=== PATIENT | male | born 1945 | race Caucasian/White ===

== ENCOUNTER → 2022-12-20 | Outpatient (CLI) | payer MEDICARE ==
--- NOTE | 2022-12-20 13:05 | CT ---
EXAMINATION TYPE: CT abdomen pelvis wo con CT DLP: 680.2 mGycm, Automated exposure control for dose reduction was used. DATE OF EXAM: 12/20/2022 12:37 PM COMPARISON: Ultrasound 10/02/2022 CLINICAL INDICATION:Male, 77 years old with history of N13.30; Urine retention and enlarged prostate. TECHNIQUE: Axial CT of the abdomen and pelvis. Sagittal and coronal reformats were created on a [employer] workstation. Contrast used: None Oral contrast used: without Oral Contrast FINDINGS: LOWER CHEST: Unremarkable ABDOMEN LIVER: Unremarkable GALLBLADDER AND BILE DUCTS: Unremarkable. PANCREAS: Unremarkable. SPLEEN: Unremarkable. ADRENAL GLANDS: Unremarkable. KIDNEYS AND URETERS: No evidence of hydronephrosis or renal calculus. The ureters are unremarkable. PELVIS BLADDER: Dilated urinary bladder with wall trabeculations measuring 15.1 x 11.0 x 10.5 cm. Left later al bladder wall diverticula measuring 19 mm. REPRODUCTIVE: Prostate is enlarged in size measuring 6.4 cm in transverse dimension. ABDOMEN & PELVIS STOMACH AND BOWEL: No evidence of bowel obstruction. Scattered colonic diverticula. The colon does ex tend into a left inguinal hernia, no evidence of obstruction. PERITONEUM/RETROPERITONEUM: No evidence of pneumoperitoneum or free fluid. VASCULATURE: Mild atherosclerotic calcifications are present throughout the abdominal aorta and its b ranches. No evidence of aortic aneurysm. MUSCULOSKELETAL: No acute osseous abnormalities, grade 1 anterolisthesis of L5 on S1. Multilevel disc degeneration changes throughout the spine. LYMPH NODES: No gross evidence for lymphadenopathy. SOFT TISSUE/ABDOMINAL WALL: Left fat-containing inguinal hernia containing loops of colon. IMPRESSION: 1. Prostatomegaly, correlate with serum PSA. 2. Dilation of the urinary bladder with bladder wall trabeculation compatible with chronic bladder o bstruction likely secondary to #1. There is a bladder diverticula present. 3. Left inguinal hernia containing loop of colon with multiple diverticula. No evidence of obstructi on.
== END | disposition home or self-care (01) ==
LOC: RADCTMAIN 12:09
PROVIDERS: ATTEND Urology
DX: N40.1 Benign prostatic hyperplasia with lower urinary tract symptoms (principal); N32.89 Other specified disorders of bladder; K40.90 Unilateral inguinal hernia, without obstruction or gangrene, not specified as recurrent; K57.30 Diverticulosis of large intestine without perforation or abscess without bleeding; N13.30 Unspecified hydronephrosis; N32.3 Diverticulum of bladder
CPT/HCPCS: 74176

== ENCOUNTER 2023-01-25 06:17 | Day surgery (SDC) | payer MEDICARE ==
[2023-01-22 13:18] VITALS: BMI 25.7
[~2023-01-25 06:17] MED LIST: ACETAMINOPHEN TAB 500 MG TAB PO PRN; DEXAMETHASONE SOD PHOSPHATE 4 MG/ML 1 ML VIAL IV ONE; HEPARIN SODIUM,PORCINE/PF 5,000 UNIT/0.5 ML SYRINGE SQ PRN; LACTATED RINGERS 1,000 ML IV SCH; LIDOCAINE 1% (10MG/ML) FOR IV START INTRADERMA PRN; MIDAZOLAM 2 MG/2 ML VIAL IV PRN; ONDANSETRON 4 MG/2 ML VIAL IVP ONE
[2023-01-25] MEDS ORDERED: LACTATED RINGERS 1,000 ML IV ONE (06:59)
[2023-01-25] MEDS ORDERED: HYDROmorphone 0.5 MG/0.5 ML SYRINGE IVP PRN (07:00)
[2023-01-25 07:06] VITALS: RESP 16
--- NOTE | 2023-01-25 07:46 | P.GSHP ---
History of Present Illness H&P Date: 01/25/23 Chief Complaint: Left inguinal hernia This is a 77-year-old male who's developed a large left inguinal hernia. Patient has sigmoid colon within his inguinal hernia. Patient presents today for open repair. Past Medical History Past Medical History: Hearing Disorder / Deafness, Hyperlipidemia, Hypertension, Myocardial Infarction (SC), Prostate Disorder Additional Past Medical History / Comment(s): Enlarged prostate. Slightly hard of hearing in right ear. Last Myocardial Infarction Date:: 2001 History of Any Multi-Drug Resistant Organisms: None Reported Past Surgical History: Heart Catheterization With Stent Additional Past Surgical History / Comment(s): Cardiac stents X2 in 2001, X1 in 2002. Past Anesthesia/Blood Transfusion Reactions: No Reported Reaction Date of Last Stent Placement:: 2002 Past Psychological History: No Psychological Hx Reported Smoking Status: Never smoker Past Alcohol Use History: Daily Additional Past Alcohol Use History / Comment(s): Quit smoking in 2001. Drinks 2 beers daily, on average. Past Drug Use History: None Reported - Past Family History Father Family Medical History: No Reported History Medications and Allergies Home Medications Medication Instructions Recorded Confirmed Type Aspirin [Adult Low Dose Aspirin EC] 81 mg PO DAILY 01/22/23 01/25/23 History Clopidogrel [Plavix] 75 mg PO DAILY 01/22/23 01/25/23 History Dutasteride 0.5 mg PO DAILY 01/22/23 01/25/23 History Isosorbide Mononitrate [Isosorbide 30 mg PO DAILY 01/22/23 01/25/23 History Mononitrate ER] Multivitamins, Thera [Multivitamin 1 tab PO DAILY 01/22/23 01/25/23 History (formulary)] Quinapril HCl [Accupril] 10 mg PO DAILY 01/22/23 01/25/23 History Simvastatin 40 mg PO HS 01/22/23 01/25/23 History Tamsulosin HCl [Flomax] 0.4 mg PO BID 01/22/23 01/25/23 History atenoloL [Tenormin] 50 mg PO DAILY 01/22/23 01/25/23 History Allergies Allergy/AdvReac Type Severity Reaction Status Date / Time No Known Allergies Allergy Verified 01/25/23 06:57 Surgical - Exam Vital Signs Temp Pulse Resp BP Pulse Ox 98 F 50 L 16 198/90 99 01/25/23 07:00 01/25/23 07:00 01/25/23 07:00 01/25/23 07:00 01/25/23 07:00 - General well developed, well nourished, no distress - Eyes PERRL - ENT normal pinna - Neck no masses - Respiratory normal expansion - Cardiovascular Rhythm: regular - Abdomen Abdomen: soft, non tender Hernia: inguinal (Left inguinal hernia) Assessment and Plan Assessment: Left inguinal hernia. We'll perform open repair.
[2023-01-25] MEDS ORDERED: ROPIVACAINE 5 MG/ML 30 ML VIAL ONE (08:00)
[2023-01-25] MEDS ORDERED: SODIUM CHLORIDE 0.9% (PF) 10 ML VIAL ONE (08:00)
[2023-01-25] MEDS ORDERED: fentaNYL (PF) 50 MCG/ML 2 ML AMP ONE (08:00)
[2023-01-25] MEDS ORDERED: PROPOFOL 10 MG/ML 20 ML VIAL IV ONE (08:00)
[2023-01-25] MEDS ORDERED: BUPIVACAINE (PF) 0.25% 30 ML VIAL SQ ONE ×2 (08:28→08:48)
--- NOTE | 2023-01-25 08:59 | P.OP ---
Date of Procedure: 01/25/23 Preoperative Diagnosis: Large left inguinal hernia Postoperative Diagnosis: Large left inguinal hernia Procedure(s) Performed: (Pair of large left incarcerated inguinal hernia Anesthesia: RUFUS Surgeon: Maycol York Estimated Blood Loss (ml): 5 Pathology: none sent Condition: stable Disposition: PACU Description of Procedure: DESCRIPTION OF PROCEDURE: The patient was placed in the supine position after receiving adequate anesthesia. Patients groin was prepped and draped in the usual sterile fashion. A standard hernia incision was made and the subcutaneous tissues were divided with electrocautery. The fascia of the external oblique was exposed. A paradise the fascia was made with #15 blade. The fascia was then opened with pair of Metzenbaum scissors. A Weitlaner retractor was placed in the wound and the cord structures were grasped and dissected free from the inguinal canal. A rubber Wilson drain was placed around the cord structures. The hernia was large. The The hernial sac was seen on the anterior-medial portion of the cord and this was dissected free from the cord. The hernia sac was dissected free from the cord structures. Hernia sac contained incarcerated sigmoid colon. The hernia sac was then invaginated to the peritoneal cavity. Using blunt finger dissection, the preperitoneal space was dissected and then the Prolene hernial mesh plug was placed into the prepared space. The inferior leaf was expanded. The superior leaf was secured to the pubic tubercle using 2-0 Prolene suture. The lateral portion of the superior leaf was incised and cords tied and secured to the transversalis fascia using 2-0 Prolene suture. Fascia of the external oblique was then closed using #0 Vicryl suture. The [place] drain was removed. The Scarpas fascia was then closed with 3-0 Vicryl suture and skin was closed with willow. The patient tolerated the procedure well.
[2023-01-25 09:07] VITALS: TEMP 97
[2023-01-25] MEDS ORDERED: ONDANSETRON 4 MG/2 ML VIAL IVP ONE (09:15)
[2023-01-25] MEDS ORDERED: SODIUM CHLORIDE 0.9% 1,000 ML IV ONE ×3 (09:27→11:30)
--- NOTE | 2023-01-25 10:02 | P.ANPRN ---
Procedure Note - Anesthesia - Nerve Block Performed Left Transversus Abdominis Single Date of Procedure: 01/25/23 Procedure Start Time: 07:49 Procedure Stop Time: 07:55 Location of Patient: PreOp Indication: Acute Post-Operative Pain, Requested by Surgeon Sedation Type: Sedate with meaningful contact maintained Preparation: Sterile Prep Position: Supine Needle Types: Pajunk Needle Gauge: 21 Ultrasound used to visualize needle placement: Yes Ultrasound used to observe medication spread: Yes Injectate: 0.5% Ropivacaine (see comment for volume) (20) Blood Aspirated: No Pain Paresthesia on Injection Noted: No Resistance on Injection: Normal Image Stored and Saved: Yes Events: Uneventful and Well Tolerated
[2023-01-25 12:41] VITALS: BP 178/82; PULSE 47
== END 2023-01-25 13:05 | disposition home or self-care (01) ==
LOC: OR 06:17
PROVIDERS: ATTEND Surgery
DX: K40.30 Unilateral inguinal hernia, with obstruction, without gangrene, not specified as recurrent (principal); G89.18 Other acute postprocedural pain; I10 Essential (primary) hypertension; E78.5 Hyperlipidemia, unspecified; I25.2 Old myocardial infarction; N40.0 Benign prostatic hyperplasia without lower urinary tract symptoms; Z95.5 Presence of coronary angioplasty implant and graft; Z79.82 Long term (current) use of aspirin; Z79.02 Long term (current) use of antithrombotics/antiplatelets; Z79.899 Other long term (current) drug therapy
CPT/HCPCS: 49507; 64486; 88304; C1781; J2250; J1100; J0690; J2405; J3010; J2795; J2704; J1644; 64488

== ENCOUNTER → 2025-03-05 | Outpatient (CLI) | payer MEDICARE ==
--- NOTE | 2025-03-05 13:51 | US ---
EXAMINATION TYPE: US kidneys/renal and bladder DATE OF EXAM: 03/05/2025 COMPARISON: CT & US CLINICAL INDICATION: Male, 80 years old with history of N13.30 UNSPECIFIED HYDRONEPHROSIS; [place] TECHNIQUE: Grayscale imaging of the bilateral kidneys and urinary bladder: FINDINGS: EXAM MEASUREMENTS: Right Kidney: 11.2 x 5.7 x 6.3 cm Left Kidney: 11.7 x 6.6 x 5.5 cm Right Kidney: No hydronephrosis or masses seen Left Kidney: Moderate hydro, hypoechoic lesion mid= 1.1 x 0.7 x 1.1 cm Bladder: Over distended as visualized on prior US and CT, multiple bladder wall diverticula- pt state s bladder does not feel full Bilateral Jets seen: No Incidental enlarged prostate as visualized on prior CT IMPRESSION: 1. Moderate left hydronephrosis. Correlate for obstructive uropathy. 2. Prostatomegaly, comparison PSA. 3. Trabeculated urinary bladder mendez correlate for chronic bladder obstruction. [facility], , 03/05/2025 1:48 PM
== END | disposition home or self-care (01) ==
LOC: RADUSWWP 13:08
PROVIDERS: ATTEND Urology
DX: N13.30 Unspecified hydronephrosis (principal); N40.0 Benign prostatic hyperplasia without lower urinary tract symptoms; N32.89 Other specified disorders of bladder
CPT/HCPCS: 76770